=== PATIENT | female | born 1980 | race Caucasian/White ===

== ENCOUNTER 2016-12-22 13:10 | Day surgery (SDC) | payer BC ==
[~2016-12-22 13:10] MED LIST: RINGERS SOLUTION,LACTATED 1,000 ML IV PRN
--- OUTSIDE RECORDS SUMMARY | 2016-12-22 13:13 | XMS REPORT | Continuity of Care Document ---
:1980 Author Organization [facility] [place] [address] Care Team Providers Name Role Phone Unavailable Primary Care Provider Unavailable Source Comments This disclosure is being made pursuant to the [employer] program and maynot contain all information available regarding this patient.[facility] Active Allergies and Adverse Reactions Not on File Current Medications Be aware that medications may not be up to date as of this document. Alwaysverify current medications with the patient. Not on file Active Problems Not on file Social History Tobacco Use Types Packs/Day Years Used Date Former Smoker Last Filed Vital Signs Vital Sign Reading Time Taken Blood Pressure - - Pulse - - Temperature 36.4 C (97.5 F) 09/20/2011 9:21 AM [facility] Respiratory Rate - - Height 1.6 m (5' 3") 09/20/2011 9:21 AM [facility] Weight 57.879 kg (127 lb 9.6 oz) 09/20/2011 9:21 AM [facility] Body Mass Index 22.61 09/20/2011 9:21 AM [facility] Oxygen Saturation - - Plan of Care Health Maintenance Due Date Last Done Comments Retired-Pertussis Vaccine Adult 2000 Retired-Tetanus Vaccine Adult 2000 Pap Smear 2002 Retired-INFLUENZA VACCINE 07/07/2015 Results from Last 3 Months Not on file
[2016-12-22] MEDS ORDERED: RINGERS SOLUTION,LACTATED 1,000 ML IV ONE (14:07)
--- NOTE | 2016-12-22 14:47 | OR ---
Operative Report - Dictated Report Narrative: Operative report: 12/22/2016 Preoperative diagnosis: Menorrhagia Postoperative diagnosis: Same Procedure: Hysteroscopy, D&C, NovaSure ablation Surgeon: Claudia Le D.O. Human Resource Intern: OR staff Anesthesia: Local and sedation IV fluids: 500 Milliliters EBL: minimal Milliliters Urine output: Not applicable Findings: uterus deviated to the pt's right and retroverted, normal appearing uterine cavity and lining, Adequate endometrial burn was noted after the ablation Drains: None Pathology: Endometrial curettings Complications: None Condition: Stable The patient was taken to the operating room. Anesthesia was found to be adequate. The patient was prepped and draped in the normal sterile fashion in the dorsal lithotomy position. A sterile speculum was then inserted into the vagina. The anterior lip of the cervix was then grasped with a single-tooth tenaculum. Local anesthetic was then injected in the cervix. The hysteroscope was then inserted into the cervix. Hydrodistention was then used to enter into the uterine cavity. The cavity was then surveyed and findings were as noted above and then the hysteroscope was removed. Measurements were then obtained. The uterine length measured 8cm and the cervical length was noted to be 2cm. The cervix was then sequentially dilated. A sharp curettage was then performed until the cry of the uterus was noted. Minimal bleeding was then noted from the cervix. The NovaSure device was then opened and the cavity length measurement applied to the device. It was then inserted into the uterine cavity. The width was then measured and found to be 4.5cm. The cavity length and cavity width was then entered into the tower and the seal was checked and passed the initial test. The device was then activated and the power was noted to be 161. The length of ablation time was 50 sec. The ablation was performed without difficulty. The device was then removed from the uterus. Hysteroscopy was then performed and adequate ablation was noted throughout the entire cavity. The hysteroscope was then removed The tenaculum was then removed. Hemostasis was noted. The speculum was then removed. All sponge lap and needle counts were correct x2. The patient was taken to the recovery room in stable condition.
[2016-12-22] MEDS ORDERED: LIDOCAINE HCL/EPINEPHRINE 30 ML VIAL IJ ONE (15:10)
[2016-12-22] MEDS ORDERED: oxyCODONE HCL/ACETAMINOPHEN 1 TAB TABLET PO PRN (15:53)
[2016-12-22] MEDS ORDERED: IBUPROFEN 800 MG TABLET PO PRN (15:55)
[2016-12-22 16:20] VITALS: BP 113/72
== END 2016-12-22 13:11 | disposition home or self-care (01) ==
LOC: AMB 13:10
PROVIDERS: ATTEND Obstetrics & Gynecology Gynecologic Oncology
PROC: 0UDB8ZX Extraction of Endometrium, Via Natural or Artificial Opening Endoscopic, Diagnostic (ICD-10-PCS; principal; 2016-12-22 15:30)
DX: N92.0 Excessive and frequent menstruation with regular cycle (principal); N85.4 Malposition of uterus; Z68.24 Body mass index [BMI] 24.0-24.9, adult